=== PATIENT | male | born 1965 | race Caucasian/White ===

== ENCOUNTER 2017-10-29 16:20 | Emergency (ER) | payer OTHER, SELFPAY ==
[2017-10-29] MEDS ORDERED: Ketorolac Tromethamine 30 MG/ML VIAL ONE (16:48)
[2017-10-29] MEDS ORDERED: Acetaminophen 500 MG TAB ONE ×2 (16:48→16:56)
[2017-10-29 17:06] LABS: ALT (SGPT) 34 U/L (8-55); AST (SGOT) 47 U/L (5-34); Albumin 3.8 g/dL (3.5-5.0); Alkaline Phosphatase 50 U/L (40-150); Anion Gap 18 mmol/L (10-20); BUN (Urea Nitrogen) 16 mg/dL (8.4-25.7); Bilirubin, Total 1.6 mg/dL (0.2-1.2); Calc. Creatinine Clearance 0 mL/min (70-130); Calcium 8.2 mg/dL (7.8-10.44); Carbon Dioxide 20 mmol/L (22-29); Chloride 92 mmol/L (98-107); Estimated GFR-MDRD 48; Globulin 3.6 g/dL (2.4-3.5); Glucose 244 mg/dL (70-105); Potassium 3.6 mmol/L (3.5-5.1); Protein, Total 7.4 g/dL (6.0-8.3); Sodium 126 mmol/L (136-145)
[2017-10-29 17:07] LABS: CK (CPK) 1186 U/L (30-200); Lipase 7 U/L (8-78)
[2017-10-29 17:10] LABS: Troponin I 0.037 ng/mL (< 0.028)
[2017-10-29 17:19] LABS: #Lymphocytes 0.2 thou/uL (1.20-3.40); #Monocytes 0.3 thou/uL (0.11-0.59); #Neutrophils 11.5 thou/uL (1.40-6.50); %Basophils 0.2 % (0.0-1.0); %Lymphocytes 1.5 % (21.0-51.0); %Monocytes 2.4 % (0.0-10.0); %Neutrophils 95.9 % (42.0-75.0); Hemoglobin 15.5 g/dL (14.0-18.0); Mean Corpuscular HGB CONC 35.2 g/dL (32.0-36.0); Mean Corpuscular Hemoglobin 30.7 pg (27.0-31.0); Mean Corpuscular Volume 87.3 fl (80.0-94.0); Mean Platelet Volume 8.5 fL (7.4-10.4); Platelet Count 109 thou/uL (130-400); Red Blood Cell (RBC) Count 5.04 mill/uL (4.70-6.10)
[2017-10-29] MEDS ORDERED: Sodium Chloride 0.9% 100 ML ONE (17:30)
[2017-10-29] MEDS ORDERED: Piperacillin/Tazobactam 3.375 GM VIAL ONE (17:30)
[2017-10-29 17:36] LABS: Bilirubin Moderate (Negative); Blood, Urine Large (Negative); Clarity Turbid (Clear); Glucose, Urine (Dipstick) 250 mg/dL (Negative); Leukocyte Negative (Negative); Nitrite Positive (Negative); Protein, Urine (Dipstick) > or equal to 300 mg/dL (Neg-Trace); pH, Urine 5.5 (5.0-9.0)
[2017-10-29 18:21] LABS: Bacteria/HPF 3+ HPF (None Seen); Other Casts/LPF 0-3 COARSE GRAN LPF (0-3 Hyaline); Squamous Epithelial 0-3 HPF (0-3)
[2017-10-29 18:34] LABS: PLT Morphology Comment DECREASED
--- NOTE | 2017-10-29 20:51 | RAD ---
PORTABLE CHEST 10/29/17 An AP portable film at 1628 shows a normal sized heart and clear lungs. There are no clear findings o f pneumonia at the moment. Some minimal haziness in the right cardiophrenic angle is not enough to di agnose an infiltrate. Degenerative changes and old trauma are suggested at the right AC joint. The tr achea is midline. IMPRESSION: No acute findings. POS: HOME
== END 2017-10-29 19:00 | disposition short-term general hospital (02) ==
LOC: BURERS 16:20
DX: A41.9 Sepsis, unspecified organism (principal); N17.9 Acute kidney failure, unspecified; R07.9 Chest pain, unspecified; M62.82 Rhabdomyolysis; Z87.891 Personal history of nicotine dependence
CPT/HCPCS: 36415; 71045; 80053; 81003; 81015; 82553; 83605; 83690; 84484; 85025; 87040; 87077; 87086; 87149; 87186; 87804; 93005; 94640; 96365; 96367; 96375; J1885; J2543; J3370; J7050; J7620